=== PATIENT | female | born 1980 | race Caucasian/White ===

== ENCOUNTER → 2017-07-15 | Outpatient (CLI) | payer OTHER, SELFPAY ==
[~2017-07-15] MED LIST: BACL10; BUSP10 PO; CYCL10; IBUP800; NAPR500 PO; OXYACE5T PO; Prilosec Otc20 MG PO
[2017-07-19 14:41] LABS: Percent Saturation 10.6 % (15.0-50.0)
== END | disposition home or self-care (01) ==
LOC: LAB 11:30 → LAB SHORT 11:30
PROVIDERS: Internal Medicine Hematology & Oncology
DX: E53.8 Deficiency of other specified B group vitamins (principal); D25.9 Leiomyoma of uterus, unspecified; D72.829 Elevated white blood cell count, unspecified; R76.8 Other specified abnormal immunological findings in serum
CPT/HCPCS: 82607; 82728; 82746; 83540; 83550

== ENCOUNTER → 2019-03-07 | Outpatient (CLI) | payer OTHER ==
[2019-03-08 15:07] LABS: HPV 16 Negative (Negative); HPV 18 Negative (Negative); HPV OTHER HR TYPES Negative (Negative)
== END | disposition home or self-care (01) ==
LOC: LAB 10:30 → LAB SHORT 10:30
PROVIDERS: Nurse Practitioner Women's Health
DX: Z12.4 Encounter for screening for malignant neoplasm of cervix (principal)
CPT/HCPCS: 87624; G0123

== ENCOUNTER → 2020-10-13 | Outpatient (CLI) | payer OTHER | END | disposition home or self-care (01) | LOC: LAB 08:35 → LAB SHORT 08:35 | DX: N39.0 Urinary tract infection, site not specified (principal) | CPT/HCPCS: 87077; 87086; 87186 ==

== ENCOUNTER 2021-07-10 12:06 | Emergency (ER) | payer OTHER ==
[~2021-07-10] VITALS: Ht 165.1 cm; Wt 129.3 kg
[2021-07-10 12:53] LABS: BASOPHILS ABSOLUTE AUTO 0.08 K/mm3 (0.00-0.23); BASOPHILS PERCENT AUTO 1 % (0-2); EOSINOPHILS PERCENT AUTO 1 % (0-6); Hematocrit 41.5 % (33.0-51.0); Hemoglobin 14.3 g/dL (11.5-16.0); IMMATURE GRAN ABSOLUTE AUTO 0.07 K/mm3 (0.00-0.10); IMMATURE GRAN PERCENT AUTO 0 % (0-1); LYMPHOCYTES ABSOLUTE AUTO 4.47 K/mm3 (0.84-5.20); LYMPHOCYTES PERCENT AUTO 28 % (21-46); MONOCYTES PERCENT AUTO 6 % (4-13); Mean Corpuscular HGB 27.5 pg (26.0-34.0); Mean Corpuscular HGB Conc 34.5 g/dL (31.5-36.5); Mean Corpuscular Volume 80 fL (80-100); NEUTROPHILS PERCENT AUTO 65 % (41-73); Platelet Count 376 K/mm3 (150-400); RDW Coefficient Variation 13.5 % (11.7-14.2); RDW Standard Deviation 38.9 fL (35.1-46.3); White Blood Cell Count 16.22 K/mm3 (4.00-11.30)
[2021-07-10 13:18] LABS: Anion Gap 10 mmol/L (6-16); Blood Urea Nitrogen 15 mg/dL (8-24); Bun/Creatinine Ratio 15.9 (12.0-20.0); CO2, Blood 24 mmol/L (21-32); Calcium, Blood 9.2 mg/dL (8.5-10.1); Chloride, Blood 105 mmol/L (98-108); Creatinine, Blood 0.94 mg/dL (0.40-1.00); Glomerular Filtration Rate >60 (60-); Glucose, Blood 109 mg/dL (70-99); Potassium, Blood 3.5 mmol/L (3.5-5.5); Sodium, Blood 139 mmol/L (136-145)
[2021-07-10] MEDS ORDERED: HYDCHL12.5 PO (13:39)
[2021-07-12] MEDS ORDERED: Toprol Xl25 MG PO (21:55)
== END 2021-07-10 13:50 | disposition home or self-care (01) ==
LOC: ER 12:06
PROVIDERS: Emergency Medicine
DX: I10 Essential (primary) hypertension (principal); Z88.0 Allergy status to penicillin; Z79.899 Other long term (current) drug therapy
CPT/HCPCS: 80048; 84443; 85025; 99283